=== PATIENT | male | born 1945 | race Caucasian/White ===

== ENCOUNTER 2017-02-08 09:29 | Day surgery (SDC) | payer MEDICARE ==
[~2017-02-08] VITALS: Ht 172.7 cm; Wt 77.1 kg
[~2017-02-08 09:29] MED LIST: 0.9% Sodium Chloride 1,000 ML IV SCH; FELO5TAB4 PO; MELO-253 PO; NAPR220C11 PO; Sodium Chloride LOK Flush 10 mL Syringe IV PRN; fentaNYL-PF 50 mCg/mL 2 mL Inj IVPUSH PRN
[2017-02-08 10:13] VITALS: BP 157/85; PULSE 63; RESP 14; O2SAT 98
[2017-02-08] MEDS ORDERED: NITR1OIN AD (10:19)
--- NOTE | 2017-02-08 11:14 | PCM.ENDCOL ---
Colonoscopy Date of Service: Feb 08, 2017 Physician Torres Irizarry MD Pre Procedure Diagnosis: Screening family history of colon cancer Post Procedure Dx & Findings: Polyp hemorrhoids Procedure Colonoscopy PROCEDURE IN DETAIL: Prep adequate Withdrawal time 10 minutes After unremarkable rectal examination the Olympus video colonoscope was inserted patient's anal canal and was advanced to cecum. Landmarks were identified including the ileocecal valve and appendiceal orifice. Scope was withdrawn systematically. Visualized colonic mucosa showed healthy shiny mucosa with normal healthy-appearing vasculature. In the rectosigmoid junction there were three 1 mm or less polyp. These were all removed completely using cold forceps. In the rectum retroflexion was done which showed hemorrhoids. Anal canal was inspected carefully on the way out and hemorrhoids noted. Impression Polyps 3 status post complete removal Hemorrhoids Recommendation Repeat colonoscopy in 3 years Presedation Assessment Risks and Benefits Informed consent was obtained from the patient after all risks and benefits including but not limited to drug reaction, infection, pain, bleeding, perforation, as well as alternatives were discussed. Patient monitoring Continuous pulse oximetry, cardiac monitoring, blood pressure monitoring, IV access, and oxygen at 2L per nasal cannula. Periprocedural Fentanyl: Fentanyl 75mcg Incrementally Midazolam: Midazolam 3mg Incrementally Complications There were no periprocedural complications identified. Post Procedure Plan Post Procedure Recommendations 1. Restrict activities today. 2. Resume normal activities in the morning. 3. Resume medications. 4. Patient informed of normal post procedure side effects as bloating, drowsiness, blood streaking in the stool. 5. average risk CRCS. If colon polyps come back as: -Hyperplastic- can repeat colonoscopy in 10 years -Tubular adenoma- repeat colonoscopy in 5 years -Tubulovillous/villous adenoma- repeat colonoscopy in 3 years -If any dysplasia- return to clinic as soon as possible 6. Please don't hesitate to call me with any questions. Torres Irizarry MD Feb 08, 2017 11:13
[2017-02-08 11:15] VITALS: BP 137/69; PULSE 59; RESP 14; O2SAT 99
[2017-02-08 11:33] VITALS: BP 138/90; PULSE 68; RESP 16; O2SAT 100
--- NOTE | 2017-02-09 15:46 | PATH ---
SURGICAL PATHOLOGY Attending Physician:Torres Irizarry M.D. CASE STATUS: Signed Out PATIENT NAME: CORNELIO HUGHES PID: [id number] : 1945 DATE COLLECTED:02/08/2017 20:06 SPECIMEN: Rectum, Biopsy CLINICAL HISTORY: 1). RECTAL POLYP FINAL DIAGNOSIS: Rectal Polyp: Hyperplastic polyp. ICD10 K62.1 GROSS DESCRIPTION: The specimen is received in one formalin filled container labeled with the patient's name, sublabeled "rectal polyp" and consists of 3 tiny fragments of tissue which aggregate to 0.3 x 0.2 x 0.2 CM. The specimen is entirely submitted in one cassette. 02/08/2017 DAC MICRO DESCRIPTION: Please see diagnosis. ICD-9 CODES: CPT CODES: 1: 78790 Electronically Signed Out Ifrah Irizarry MD [facility], [place] [address] Technical component performed at [facility], [address] [place] [address] [address], [place], [address]
== END 2017-02-08 23:59 | disposition home or self-care (01) ==
LOC: END 09:29
PROVIDERS: ATTEND Internal Medicine
DX: Z12.11 Encounter for screening for malignant neoplasm of colon (principal); K62.1 Rectal polyp; K64.8 Other hemorrhoids; Z85.038 Personal history of other malignant neoplasm of large intestine; Z80.0 Family history of malignant neoplasm of digestive organs
CPT/HCPCS: 45380; 88305; 99153; G0500; J7030